=== PATIENT | male | born 1955 | race Caucasian/White ===

== ENCOUNTER → 2017-10-13 | Outpatient (CLI) | payer OTHER | LOC: BMCIMAGING 13:22 | PROVIDERS: ATTEND Internal Medicine | DX: M16.0 Bilateral primary osteoarthritis of hip (principal) ==

== ENCOUNTER → 2017-11-02 | Outpatient (CLI) | payer OTHER | LOC: BMCIMAGING 09:05 | PROVIDERS: ATTEND Orthopaedic Surgery Hand Surgery | DX: M25.551 Pain in right hip (principal) ==

== ENCOUNTER → 2017-11-09 | Outpatient (CLI) | payer BC, OTHER | LOC: BMCIMAGING 08:41 | PROVIDERS: ATTEND Orthopaedic Surgery Hand Surgery | DX: M25.551 Pain in right hip (principal) ==

== ENCOUNTER → 2017-11-16 | Outpatient (CLI) | payer BC | LOC: BMCIMAGING 08:59 | PROVIDERS: ATTEND Orthopaedic Surgery Hand Surgery | DX: M25.551 Pain in right hip (principal) ==